=== PATIENT | female | born 1955 | race Caucasian/White ===

== ENCOUNTER → 2017-07-21 | Outpatient (CLI) | payer MEDICARE ==
[~2017-07-21] MED LIST: INDERAL 10MG10 MG PO; INDERAL 20MG20 MG PO; PRILOTC PO; VAGIFEM10 MCG VG; ZOLOFT 50MG50 MG PO
== END ==
LOC: MC.RAD 08:09
DX: Z12.31 Encounter for screening mammogram for malignant neoplasm of breast (principal)

== ENCOUNTER → 2018-07-28 | Outpatient (CLI) | payer MEDICARE | LOC: MC.RAD 14:00 | DX: Z12.31 Encounter for screening mammogram for malignant neoplasm of breast (principal) ==

== ENCOUNTER → 2019-08-09 | Outpatient (CLI) | payer MEDICARE | LOC: MC.RAD 09:45 | DX: Z12.31 Encounter for screening mammogram for malignant neoplasm of breast (principal) ==

== ENCOUNTER → 2019-10-24 | Outpatient (CLI) | payer MEDICARE | LOC: COL.RAD 07:42 | DX: R68.81 Early satiety (principal) | CPT/HCPCS: A9541 ==

== ENCOUNTER → 2020-08-28 | Outpatient (CLI) | payer MEDICARE | LOC: MC.RAD 14:16 | DX: Z12.31 Encounter for screening mammogram for malignant neoplasm of breast (principal) ==

== ENCOUNTER → 2021-11-16 | Outpatient (CLI) | payer MEDICARE | LOC: MC.RAD 10:17 | DX: Z12.31 Encounter for screening mammogram for malignant neoplasm of breast (principal) ==

== ENCOUNTER → 2022-12-02 | Outpatient (CLI) | payer MEDICARE | LOC: MC.RAD 09:13 | DX: Z12.31 Encounter for screening mammogram for malignant neoplasm of breast (principal) ==